=== PATIENT | male | born 1955 | race Caucasian/White ===

== ENCOUNTER 2019-05-02 13:44 | Emergency (ER) | payer OTHER, SELFPAY ==
[2019-05-02] VITALS (22 sets, daily range): BP systolic 92–135; BP diastolic 63–119; PULSE 82–146; RESP 9–19; TEMP 37.1; O2SAT 97–100
--- NOTE | 2019-05-02 13:49 | ECG_ITS ---
Measurements Intervals [place] Rate: 143 P: VT: 0 QRS: 27 QRSD: 86 T: 27 QT: 292 QTc: 451 Interpretive Statements ATRIAL FLUTTER/TACHYCARDIA WITH RAPID VENTRICULAR RESPONSE DELAYED PRECORDIAL R/S TRANSITION ABNORMAL ECG Electronically Signed On 05-03-2019 8:13:40 [employer] by Linwood Valentin D.O.
--- NOTE | 2019-05-02 14:11 | ED.ARRPALP ---
HPI - Arrhythmia/Palpitations General Chief Complaint: Arrhythmia/Palpitations Stated Complaint: Afib, low BP, tired Time Seen by Provider: 05/02/19 14:07 Source: patient and RN notes reviewed Mode of arrival: ambulatory Limitations: no limitations History of Present Illness HPI narrative: Pt is a 63 y/o male who presents to the ED with c/o arrhythmia which began at 0215 this morning. Pt states he has a PMHx of atrial fibrillation, and during episodes, he is able to feel every heartbeat. Pt denies having atrial fibrillation constantly. He reports his heart rate went from 70 bpm to 120 bpm in 2 seconds this morning. He states he is able to revert himself, but seemed unable to do so this episode which prompted him to come to the ED. He reports diaphoresis, but denies lightheadedness, chest pain, or SOB. Pt reports taking Metoprolol 75 mg twice a day for his atrial fibrillation. 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 Pt reports having cardioversions and ablations done in the past due to his cardiac complications. complaint: atrial fibrillation (felt every heartbeat) Onset (ago): hour(s) (0215 this morning) Time: 02:15 Duration: intermittent Severity: mild Context: occurred during rest (shortly after waking up) Arrhythmia history: atrial fibrillation Associated symptoms: diaphoresis Treatments prior to arrival: other (Metoprolol medication which did not alleviate symptoms) Related Data Home Medications Medication Instructions Recorded Confirmed metoprolol tartrate 05/02/19 sotalol 05/02/19 Allergies Allergy/AdvReac Type Severity Reaction Status Date / Time Penicillins Allergy Unknown Unknown Verified 05/02/19 14:15 Review of Systems Review of Systems: All systems reviewed & are unremarkable except as noted in HPI and below Constitutional: Constitutional: Denies other (lightheadedness) Cardiovascular: Cardiovascular: Denies chest pain, Reports diaphoresis and Reports other (arrhythmia (felt every heartbeat)) Respiratory: Respiratory: Denies dyspnea Neurologic: Reports other (lightheadedness) [facility] Past Medical History Medical History (Updated 05/02/19 @ 15:57 by Jonas Leary MD) Anxiety Arthritis Atrial fibrillation Bronchitis Diverticulitis Diverticulosis Gout Hypertension Rectal polyp UTI (urinary tract infection) Surgical History Surgical History (Updated 05/02/19 @ 14:13 by Roslyn Lorenz) H/O cardiac catheterization Family History Family History (Updated 11/21/16 @ 14:06 by DOCTOR UNKNOWN) Other Carcinoma of colon Family history of heart disease in male family member before age 55 Family history of malignant neoplasm Social History Social History Smoking status: Never smoker Alcohol intake: current Gender identity (if verbalized by the patient): Male Exam Narrative: Exam Narrative: Const: Healthy appearing, no acute distress, well nourished. HENMT: Lip normal, Moist mucous membranes. Eyes: Conjunctive normal, PERRL. Resp: Normal respiratory effect, clear to auscultation bilaterally. Cardio: Tachycardia but irregularly regular. No murmurs. GI: Soft, nontender, normal bowel sounds. Back/Spine/Pelvis: Full ROM Skin: Normal color, dry skin, warm Neuro: Oriented x3, alert, normal speech. Extremities: Full ROM Psych: Mental status grossly normal, normal affect. Course Vital Signs Vital signs: Vital Signs Temperature 37.1 C 05/02/19 13:57 Pulse Rate 138 H 05/02/19 13:57 Respiratory Rate 16 05/02/19 13:57 Blood Pressure 92/63 L 05/02/19 13:57 Pulse Oximetry 98 05/02/19 13:57 Temperature 37.1 C 05/02/19 13:57 Pulse Rate 84 05/02/19 15:55 Respiratory Rate 15 05/02/19 15:55 Blood Pressure 122/90 05/02/19 15:55 Pulse Oximetry 98 05/02/19 15:55 Procedures Other Procedure Procedure 1: Other Procedure: Electrical car
[2019-05-02] MEDS: SODIUM CHLORIDE 0.9% IV 1,000 ML 999 ML IV CONT (14:26)
[2019-05-02 14:35] LABS: Basophils Absolute Auto 0.1 K/mm3 (0.0-0.1); Basophils Percent Auto 0.5 % (0.2-1.2); Eosinophils Absolute Auto 0.3 K/mm3 (0-0.3); Hematocrit 51.3 % (42.0-52.0); Hemoglobin 17.4 g/dL (14.0-18.0); Immature Granulocyte Absolute 0.12 K/mm3 (0.00-0.031); Lymphocytes Absolute Auto 2.86 K/mm3 (0.9-3.2); Lymphocytes Percent Auto 22.8 % (18.3-44.2); Mean Corpuscular HGB Conc 33.9 g/dl (32-36); Mean Corpuscular Hemoglobin 31.8 pg (26-34); Mean Corpuscular Volume 93.8 fl (80-100); Mean Platelet Volume 9.9 fl (7.4-10.4); Monocytes Absolute Auto 1.1 K/mm3 (0.1-0.6); Monocytes Percent Auto 8.4 % (2.6-8.5); Neutrophils Absolute Auto 8.2 K/mm3 (1.3-6.7); Neutrophils Percent Auto 65.3 % (45.5-73.1); Platelet Count Result 289 k/mm3 (150-375); Red Blood Count 5.47 M/mm3 (4.6-6.20); Red Cell Distribution Width 12.5 % (11.5-14.5); White Blood Count 12.5 K/mm3 (4.5-10.0)
[2019-05-02 14:50] LABS: Blood Urea Nitrogen 14 mg/dL (9-20); Calcium 9.5 mg/dL (8.4-10.2); Carbon Dioxide 18 mmol/L (22-30); Chloride 102 mmol/L (98-107); Estimated CRCL calculation 93 ml/min; Estimated Glomerular Filt Rate > 60; Glucose 118 mg/dL (75-110); Potassium 4.4 mmol/L (3.4-5.0); Sodium 137 mmol/L (137-145)
[2019-05-02 15:00] LABS: Troponin I < 0.012 ng/mL (0.000-0.034)
[2019-05-02 15:05] LABS: INR 1.1; Partial Thromboplastin Time 27.9 SECONDS (22.3-36.8); Prothrombin Time 13.5 Seconds (11.1-14.7)
--- NOTE | 2019-05-02 15:48 | PC.NURSE ---
Consent obtained for cardioversion by EDP for AFib. EDP at bedside 100mcg Fentanyl given IVP @1540 200J sync cardioversion by EDP @1541 Post cardioversion, pt's HR 89, BP 122/90 Pt awake for procedure, states I feel better now .
--- NOTE | 2019-05-02 17:06 | PC.NURSE ---
Pt ambulated with this RN, pt denies any dizziness, palpations or SOB.
== END 2019-05-02 17:21 | disposition home or self-care (01) ==
PROVIDERS: Emergency Medicine; Emergency Provider Emergency Medicine; PCP Internal Medicine
DX: I48.91 Unspecified atrial fibrillation (principal); M10.9 Gout, unspecified; I10 Essential (primary) hypertension; Z87.19 Personal history of other diseases of the digestive system; Z87.440 Personal history of urinary (tract) infections
CPT/HCPCS: 36415; 80048; 84484; 85025; 85610; 85730; 92960; 93005; 96361; 96374; 96375; 99284; J3010; J7030

== ENCOUNTER 2019-09-01 12:09 | Emergency (ER) | payer OTHER, SELFPAY ==
[2019-09-01] VITALS (27 sets, daily range): BP systolic 115–150; BP diastolic 76–116; PULSE 88–149; RESP 7–22; TEMP 35.5; O2SAT 95–100
--- NOTE | 2019-09-01 12:32 | ED.ARRPALP ---
HPI - Arrhythmia/Palpitations General Chief Complaint: Arrhythmia/Palpitations Stated Complaint: I'm in a-fib Time Seen by Provider: 09/01/19 12:22 History of Present Illness HPI narrative: 63 yo male w/ h/o paroxysmal atrial fibrillation presents to the ED by private vehicle c/o at-fib. Around 1030 this morning he felt his heart rate become rapid. He has no chest pain. He does report feeling fatigued. He had a similar episode a few months ago when I saw him and emergently cardioverted him in the ED. He is on sotalol and metoprolol. Related Data Home Medications Medication Instructions Recorded Confirmed metoprolol tartrate 05/02/19 sotalol 05/02/19 Allergies Allergy/AdvReac Type Severity Reaction Status Date / Time Penicillins Allergy Unknown Unknown Verified 05/02/19 16:38 Review of Systems Review of Systems: All systems reviewed & are unremarkable except as noted in HPI and below Constitutional: Constitutional: Reports fatigue and Denies fever(s) ENT: Denies sore throat Cardiovascular: Cardiovascular: Denies chest pain and Reports rapid heart rate Respiratory: Respiratory: Denies dyspnea Gastrointestinal: Gastrointestinal: Denies abdominal pain Neurologic: Denies weakness PMFSH Past Medical History Medical History Anxiety Arthritis Atrial fibrillation Bronchitis Diverticulitis Diverticulosis Gout Hypertension Rectal polyp UTI (urinary tract infection) Surgical History Surgical History H/O cardiac catheterization Family History Family History Other Carcinoma of colon Family history of heart disease in male family member before age 55 Family history of malignant neoplasm Social History Social History Smoking status: Never smoker Alcohol intake: current Gender identity (if verbalized by the patient): Male Exam Const: General: healthy appearing, no acute distress and alert Orientation/consciousness: patient oriented x3 HENMT: Head: normal to inspection Neck: Neck: normal visual inspection and no lymphadenopathy Chest: Chest palpation & inspection: no tenderness Resp: Effort & Inspection: normal respiratory effort Auscultation: clear to auscultation bilaterally, no rales, no rhonchi and no wheezes Cardio: Jugular venous distension: no JVD Rate: tachycardic Rhythm: regular rhythm Heart sounds: no murmurs GI: Inspection: non-distended GI Palp: Yes Soft to palpation and No Tenderness to palpation present (GI) Skin: General skin exam: normal color Neuro: General: patient oriented x3, moves all extremities, no focal motor deficits and CN's II-XI intact bilaterally Speech: normal speech Extrem: General: no edema Psych: Appearance: well kempt Affect: normal affect Course Vital Signs Vital signs: Vital Signs Temperature 35.5 C L 09/01/19 12:19 Pulse Rate 148 H 09/01/19 12:19 Respiratory Rate 20 09/01/19 12:19 Blood Pressure 150/116 H 09/01/19 12:19 Pulse Oximetry 100 09/01/19 12:19 Temperature 35.5 C L 09/01/19 12:19 Pulse Rate 89 09/01/19 15:16 Respiratory Rate 11 L 09/01/19 15:16 Blood Pressure 124/76 09/01/19 15:16 Pulse Oximetry 96 09/01/19 15:16 Procedures Procedural Sedation Procedural Sedation #1: Procedure: Eletrical cardioversion Provider Performed: sedation and procedure Informed Consent Obtained: yes Equipment in Room: bag and mask, quality assurance monitor body, crash cart, oxygen, pulse oximeter and suction Plan for Sedation: moderate sedation ASA Class: II Mallampati Classification: class I Explanation to Patient/Family: Risk/Benefits/Alternatives and Pt/Family agreed with plan Pt. Educated on Procedural Sedation: Yes Re-evaluated imm
[2019-09-01 12:44] LABS: Basophils Absolute Auto 0.1 K/mm3 (0.0-0.1); Basophils Percent Auto 0.8 % (0.2-1.2); Eosinophils Absolute Auto 0.4 K/mm3 (0-0.3); Eosinophils Percent Auto 3.5 % (0-4.4); Hematocrit 55.6 % (42.0-52.0); Hemoglobin 19.2 g/dL (14.0-18.0); Immature Granulocyte Absolute 0.14 K/mm3 (0.00-0.031); Immature Granulocyte Percent A 1.3 % (0-0.5); Lymphocytes Absolute Auto 3.31 K/mm3 (0.9-3.2); Mean Corpuscular HGB Conc 34.5 g/dl (32-36); Mean Corpuscular Hemoglobin 32.6 pg (26-34); Mean Corpuscular Volume 94.4 fl (80-100); Mean Platelet Volume 9.5 fl (7.4-10.4); Monocytes Absolute Auto 0.9 K/mm3 (0.1-0.6); Monocytes Percent Auto 8.7 % (2.6-8.5); Neutrophils Absolute Auto 5.8 K/mm3 (1.3-6.7); Neutrophils Percent Auto 54.7 % (45.5-73.1); Platelet Count Result 284 k/mm3 (150-375); Red Blood Count 5.89 M/mm3 (4.6-6.20); Red Cell Distribution Width 12.4 % (11.5-14.5); White Blood Count 10.7 K/mm3 (4.5-10.0)
[2019-09-01 12:55] LABS: Blood Urea Nitrogen 15 mg/dL (9-20); Calcium 9.8 mg/dL (8.4-10.2); Carbon Dioxide 24 mmol/L (22-30); Chloride 99 mmol/L (98-107); Estimated CRCL calculation 108 ml/min; Estimated Glomerular Filt Rate > 60; Glucose 144 mg/dL (75-110); Potassium 4.6 mmol/L (3.4-5.0); Prothrombin Time 12.5 Seconds (11.1-14.7); Sodium 135 mmol/L (137-145)
[2019-09-01 12:56] LABS: Partial Thromboplastin Time 28.1 SECONDS (22.3-36.8)
--- NOTE | 2019-09-01 13:11 | ECG_ITS ---
Measurements Intervals [place] Rate: 151 P: [place]: 0 QRS: 8 QRSD: 94 T: 49 QT: 278 QTc: 441 Interpretive Statements SUPRAVENTRICULAR TACHYCARDIA, CONSIDER ATRIAL FLUTTER CANNOT RULE OUT SEPTAL INFARCT, AGE INDETERMINATE BORDERLINE ST-T WAVE ABNORMALITY- INF/LAT LEADS ABNORMAL ECG Electronically Signed On 09-01-2019 15:42:52 CDT by Linwood Valentin D.O.
[2019-09-01 14:15] LABS: Troponin I < 0.012 ng/mL (0.000-0.034)
[2019-09-01] MEDS: METOPROLOL TARTRATE INJ 5 MG/5 ML VIAL 2.5 MG IV PUSH (14:33)
== END 2019-09-01 15:36 | disposition home or self-care (01) ==
PROVIDERS: Emergency Provider Emergency Medicine; PCP Internal Medicine
DX: I48.92 Unspecified atrial flutter (principal); I48.0 Paroxysmal atrial fibrillation; I47.1 Supraventricular tachycardia; R94.31 Abnormal electrocardiogram [ECG] [EKG]; I10 Essential (primary) hypertension; M10.9 Gout, unspecified; Z87.440 Personal history of urinary (tract) infections
CPT/HCPCS: 36415; 80048; 84484; 85025; 85610; 85730; 92960; 93005; 96374; 99285

== ENCOUNTER 2020-06-25 21:00 | Observation (INO) | payer OTHER, SELFPAY ==
--- NOTE | ~2020-06-25 | XR_ITS ---
XR chest 1V portable 06/25/2020 23:30 Indication: Atrial fibrillation. Procedure: AP portable chest Comparison: Comparison to multiple prior studies sequentially, with oldest reviewed study dated 03/2011. Findings: Cardiomegaly. Diffuse bilateral airspace disease. No significant effusion or pneumothorax. No acute osseous abnormality. Impression: 1: Diffuse bilateral airspace disease which may represent edema or pneumonia. 2: Cardiomegaly. Reviewed, dictated and finalized at location A. Impression: 1: Diffuse bilateral airspace disease which may represent edema or pneumonia. 2: Cardiomegaly.
[2020-06-25 21:09] VITALS: BP 109/90; PULSE 147; RESP 18; TEMP 36.5; O2SAT 94
--- NOTE | 2020-06-25 21:14 | ECG_ITS ---
Measurements Intervals [place] Rate: 144 P: [place]: 0 QRS: 9 QRSD: 98 T: 65 QT: 307 QTc: 477 Interpretive Statements ATRIAL FIBRILLATION WITH RAPID VENTRICULAR RESPONSE BORDERLINE ST-T WAVE ABNORMALITY- HIGH LATERAL LEADS ABNORMAL ECG Electronically Signed On 06-26-2020 7:13:20 CDT by Linwood Valentin D.O.
--- NOTE | 2020-06-25 21:16 | ED.GENADULT ---
HPI - General Adult General Chief complaint: Arrhythmia/Palpitations Stated complaint: arrythmias Time Seen by Provider: 06/25/20 21:10 History of Present Illness HPI narrative: Patient is a 64 y/o male complaining of heart palpitation starting 2 hours ago. He states that his heart is beating moderately fast. There is no alleviating or exacerbating factor. He has no chest pain. He has slight SOB. Related Data Home Medications Medication Instructions Recorded Confirmed metoprolol tartrate 75 mg PO Q12H 05/02/19 06/26/20 sotalol 80 mg PO DAILY 05/02/19 06/26/20 L. gasseri-B. bifidum-B longum 1 cap PO DAILY 06/26/20 06/26/20 [[employer] aspirin 325 mg PO DAILY 06/26/20 06/26/20 diphenhydramine HCl [Benadryl] 50 mg PO HS 06/26/20 06/26/20 ffrrahuusdhs-ulc-uhvu-FA-vit K 1 tablet PO DAILY 06/26/20 06/26/20 [Adults Multivitamin] omega-3 fatty acids-vitamin E 1,000 cap PO DAILY 06/26/20 06/26/20 [Fish Oil] sotalol 100 mg PO HS 06/26/20 06/26/20 Allergies Allergy/AdvReac Type Severity Reaction Status Date / Time Penicillins Allergy Unknown Unknown Verified 05/02/19 16:38 Review of Systems Constitutional: Constitutional: Denies chills, Denies fever(s), Denies headache(s) and Denies weakness Eyes: Eyes: Denies blurry vision ENT: Denies headache(s) and Denies neck pain Cardiovascular: Cardiovascular: Denies chest pain, Reports rapid heart rate and Reports dyspnea Respiratory: Respiratory: Denies cough and Denies dyspnea Gastrointestinal: Gastrointestinal: Denies abdominal pain, Denies diarrhea, Denies nausea and Denies vomiting Genitourinary: Genitourinary: Denies hematuria and Denies dysuria Musculoskeletal: Musculoskeletal: Denies back pain and Denies neck pain Neurologic: Denies headache(s) and Denies weakness [facility] Past Medical History Medical History Anxiety Arthritis Atrial fibrillation Bronchitis Diastolic dysfunction Echocardiogram March 2016: Grade 2 diastolic dysfunction EF 75-80%, mild to moderate mitral valve regurgitation with possible underestimation of degree of regurgitation given jet Diverticulitis Diverticulosis Gout History of cardioversion Hypertension Hypertrophic cardiomyopathy Rectal polyp UTI (urinary tract infection) Surgical History Surgical History H/O cardiac catheterization History of cardiac radiofrequency ablation History of colonoscopy with polypectomy (~2016) History of radiofrequency ablation (RFA) procedure for cardiac arrhythmia S/P medial meniscectomy of left knee (~11/2016) Status post laparoscopic-assisted sigmoidectomy (~2013) Family History Family History Other Carcinoma of colon Family history of heart disease in male family member before age 55 Family history of malignant neoplasm Social History Social History (Updated 06/26/20 @ 09:19 by Keara Bolden DO) Social History: The patient is . He drinks at least 3-4 beers a day. He is a lifelong nonsmoker and denies drug use. Smoking status: Never smoker Alcohol intake: current Drinks per week: 20 Substance use: never Gender identity (if verbalized by the patient): Male Spiritual care concerns: No Exam Const: General: no acute distress and well developed Orientation/consciousness: oriented to person, oriented to place, oriented to time and patient oriented x3 HENMT: Head: normocephalic Ears: external ears normal General nose exam: Normal external nose present Eyes: General: appearance normal, both eyes and all related structures Conjunctivae: conjunctivae normal Neck: Neck: normal visual inspection and full ROM Chest: Chest palpation & inspection: normal inspection of the chest and no tenderness Resp: Effort & Inspection: normal respiratory effort Auscultation: clear to auscultation
[2020-06-25 21:24] LABS: Basophils Absolute Auto 0.1 K/mm3 (0.0-0.1); Basophils Percent Auto 0.6 % (0.2-1.2); Eosinophils Absolute Auto 0.1 K/mm3 (0-0.3); Eosinophils Percent Auto 1.1 % (0-4.4); Hematocrit 39.7 % (42.0-52.0); Hemoglobin 13.4 g/dL (14.0-18.0); Immature Granulocyte Absolute 0.48 K/mm3 (0.00-0.031); Immature Granulocyte Percent A 4.5 % (0-0.5); Lymphocytes Absolute Auto 1.39 K/mm3 (0.9-3.2); Lymphocytes Percent Auto 13.1 % (18.3-44.2); Mean Corpuscular HGB Conc 33.8 g/dl (32-36); Mean Corpuscular Hemoglobin 30.9 pg (26-34); Mean Corpuscular Volume 91.7 fl (80-100); Mean Platelet Volume 8.9 fl (7.4-10.4); Monocytes Absolute Auto 0.8 K/mm3 (0.1-0.6); Neutrophils Absolute Auto 7.9 K/mm3 (1.3-6.7); Neutrophils Percent Auto 73.7 % (45.5-73.1); Platelet Count Result 501 k/mm3 (150-375); Red Blood Count 4.33 M/mm3 (4.6-6.20); Red Cell Distribution Width 12.4 % (11.5-14.5); White Blood Count 10.7 K/mm3 (4.5-10.0)
[2020-06-25 21:33] LABS: Anion Gap 4 mmol/L (8-16); Blood Urea Nitrogen 9 mg/dL (9-20); Carbon Dioxide 26 mmol/L (22-30); Chloride 102 mmol/L (98-107); Estimated CRCL calculation 119 ml/min; Estimated Glomerular Filt Rate > 60; Glucose 133 mg/dL (75-110); Potassium 3.5 mmol/L (3.4-5.0); Sodium 132 mmol/L (137-145)
[2020-06-25 21:34] LABS: INR 1.1; Prothrombin Time 14.5 Seconds (11.1-14.7)
[2020-06-25 21:35] LABS: Partial Thromboplastin Time 29.8 SECONDS (22.3-36.8)
[2020-06-25] MEDS: dilTIAZem HCl INJ 25 MG/5 ML VIAL 10 MG IV PUSH (21:43)
[2020-06-25 21:44] VITALS: BP 119/97; PULSE 141
[2020-06-25 21:45] LABS: Troponin I < 0.012 ng/mL (0.000-0.034)
[2020-06-25 23:50] VITALS: BP 109/74; PULSE 121; RESP 18; O2SAT 96
[2020-06-26] VITALS (28 sets, daily range): BP systolic 90–134; BP diastolic 50–91; PULSE 74–117; RESP 16–28; TEMP 36.1–36.7; O2SAT 90–99; BMI 31.9
--- NOTE | 2020-06-26 01:57 | ADMGEN ---
This patient, Kieran Martinez, was admitted to IMU Room 200-01. Patient/family oriented to hospital policies and general routines including ID bracelet, bed and alarms, visiting hours, pain management, procedures, bathroom and other care routines, personal items, smoking policy, room service/diet, and visiting hours. Information on how to activate the Rapid Response Team has been discussed. Patient/Family are encouraged to report perceived risks to care and to ask questions if they do not understand what they are told or what they should do. Pal TIERNEY Approx [id number]
[2020-06-26 03:54] LABS: Hematocrit 34.9 % (42.0-52.0); Hemoglobin 11.9 g/dL (14.0-18.0); Mean Corpuscular HGB Conc 34.1 g/dl (32-36); Mean Corpuscular Hemoglobin 31.6 pg (26-34); Mean Corpuscular Volume 92.8 fl (80-100); Mean Platelet Volume 9.2 fl (7.4-10.4); Platelet Count Result 447 k/mm3 (150-375); Red Blood Count 3.76 M/mm3 (4.6-6.20); Red Cell Distribution Width 12.4 % (11.5-14.5)
[2020-06-26 04:03] LABS: Anion Gap 5 mmol/L (8-16); Blood Urea Nitrogen 11 mg/dL (9-20); Calcium 7.9 mg/dL (8.4-10.2); Carbon Dioxide 27 mmol/L (22-30); Chloride 100 mmol/L (98-107); Estimated CRCL calculation 119 ml/min; Estimated Glomerular Filt Rate > 60; Glucose 112 mg/dL (75-110); Potassium 3.5 mmol/L (3.4-5.0); Sodium 132 mmol/L (137-145)
[2020-06-26 04:14] LABS: NT Pro B Type Natriuretic Pept 2350 PG/ML (5-100); Troponin I 0.027 ng/mL (0.000-0.034)
--- NOTE | 2020-06-26 06:12 | PM.IMHP ---
H&P: HPI History of Present Illness Date/Time: 06/26/20 06:12 Chief Complaint: In AFib again Narrative: 64-year-old male with past medical history of paroxysmal atrial fibrillation who presented to the ER with recurrent AFib. The patient reports that he had been off work for 2 weeks due to COVID-19. He had just returned to work on the and finished a complete day work. He went home and drank 3 beers and ate dinner. During dinner he felt 2 brief episodes of flutter. After dinner when he went to relax he went into atrial fibrillation. He got up and took an extra with 40 mg of sotalol for a total dose of 140 mg and he walked around the room. He reports that sometimes if he gets up in exerts himself mildly his heart will go back into a more normal rhythm. His symptoms did not resolve so he came to the ER. In the ER he received a Cardizem bolus and was placed on a Cardizem drip. His heart rate improved down into the 70s but he remains in AFib. The patient has had 2 cardiac ablation so with recurrence of AFib. His last ablation was in 2013. His last electrical cardioversion for in March 2019 and in August of 2019. He denies any chest pain or shortness of breath with his symptoms. He reports that he thinks he went into AFib because he has not been sleeping as well due to a lingering cough following his recent COVID diagnosis. Review of Systems Review of Systems: Narrative: 12 systems were reviewed with pertinent positives and negatives per HPI. Except as documented in the HPI, all other systems were reviewed and are negative. [facility] Past Medical History Medical History Anxiety Arthritis Atrial fibrillation Bronchitis Diastolic dysfunction Echocardiogram March 2016: Grade 2 diastolic dysfunction EF 75-80%, mild to moderate mitral valve regurgitation with possible underestimation of degree of regurgitation given jet Diverticulitis Diverticulosis Gout History of cardioversion Hypertension Hypertrophic cardiomyopathy Rectal polyp UTI (urinary tract infection) Surgical History Surgical History H/O cardiac catheterization History of cardiac radiofrequency ablation History of colonoscopy with polypectomy (~2016) History of radiofrequency ablation (RFA) procedure for cardiac arrhythmia S/P medial meniscectomy of left knee (~11/2016) Status post laparoscopic-assisted sigmoidectomy (~2013) Family History Family History Other Carcinoma of colon Family history of heart disease in male family member before age 55 Family history of malignant neoplasm Social History Social History (Updated 06/26/20 @ 09:19 by Keara Bolden DO) Social History: The patient is . He drinks at least 3-4 beers a day. He is a lifelong nonsmoker and denies drug use. Smoking status: Never smoker Alcohol intake: current Drinks per week: 20 Substance use: never Gender identity (if verbalized by the patient): Male Spiritual care concerns: No Meds Home Medications and Allergies Home Medications Medication Instructions Recorded Confirmed Type metoprolol tartrate 75 mg PO Q12H 05/02/19 06/26/20 History sotalol 80 mg PO DAILY 05/02/19 06/26/20 History L. gasseri-B. bifidum-B longum 1 cap PO DAILY 06/26/20 06/26/20 History [[facility]] aspirin 325 mg PO DAILY 06/26/20 06/26/20 History diphenhydramine HCl [Benadryl] 50 mg PO HS 06/26/20 06/26/20 History wxujkrgliqgy-jqb-tett-FA-vit K 1 tablet PO DAILY 06/26/20 06/26/20 History [Adults Multivitamin] omega-3 fatty acids-vitamin E 1,000 cap PO DAILY 06/26/20 06/26/20 History [Fish Oil] sotalol 100 mg PO HS 06/26/20 06/26/20 History Allergies Allergy/AdvReac Type Severity Reaction Status Date / Time Penicillins Allergy Unknown Unknown Verified 05/02/19 16:38 Vital Signs Vital Si
--- NOTE | 2020-06-26 08:13 | PM.CNCAR ---
Assessment and Plan Assessment and plan (1) Atrial fibrillation with RVR: Code(s): I48.91 - Unspecified atrial fibrillation Status: Acute Assessment and Plan: 64-year-old male with past medical history of atrial fibrillation and atrial flutter with history of radiofrequency ablation treatment, s/p multiple cardioversions; last DC cardioversion on May 08, 2016 for atrial flutter; asymmetric septal hypertrophy; recent COVID-19 infection. Patient presents with recurrence of atrial fibrillation with RVR. He has been initiated on diltiazem, but remains in atrial fibrillation. Patient is eager to proceed with FARAZ guided DC cardioversion. -I spoke at length with the patient about his clinical condition. Patient drinks 3-4 beers per day. He was strongly advised to cut down or preferably a stop alcohol use, as it may be contributing to his recurrent AFib. -patient has been historically noncompliant with anticoagulation due to symptoms of dyspepsia. He also has concerns about the cost related to novel anticoagulants. Option of warfarin was discussed with the patient. Patient would be a candidate for chronic anticoagulation for CVA prophylaxis. At this time, he has willing to be anticoagulated prior to and at least 4 weeks post cardioversion. He will be discharged home post cardioversion on apixaban 5 mg p.o. b.i.d. Will also add PPI due to history of dyspepsia with anticoagulants. -patient will continue on sotalol for rhythm control strategy post cardioversion. 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 He was advised to follow up with electrophysiology as well, however, patient seemed to be reluctant for that. History of Present Illness History of Present Illness Consult date/time: 06/26/20 08:13 Date of consult 06/26/2020 Reason for consult: AFib Requesting physician:MD Ghulam Chief complaint: Palpitations HPI: 64-year-old male with past medical history of atrial fibrillation and atrial flutter with history of radiofrequency ablation treatment, s/p multiple cardioversions; last DC cardioversion on May 08, 2016 for atrial flutter; asymmetric septal hypertrophy; recent COVID-19 infection. Patient follows with Dr. Alfonso for cardiovascular care. He presented to [facility] ER on 06/25/2020 complaints of palpitations that started last night. Patient has history of atrial fibrillation and flutter with radiofrequency ablation x2 in 2012 and 2013 by . He had recurrence of atrial flutter with subsequent cardioversions. Patient states that he usually knows when he goes back into the atrial fibrillation/flutter. He states he has not had any palpitations for approximately 9 months, until last night. At baseline, he does not have any dyspnea on exertion, chest pain, dizziness or syncope. He has started not been compliant with chronic anticoagulation. Patient states that he was unable to tolerate dabigatran and rivaroxaban due to dyspepsia. He is taking aspirin currently. Patient has been on rhythm control with sotalol. He is also on metoprolol tartrate. Patient recently had COVID-19 infection 2-3 weeks ago. He did not require any hospitalization. Patient states that he had symptoms of fever which last for few days. Initial EKG on my personal evaluation showed SVT versus atrial flutter with a ventricular rate of 151 beats per minute. Subsequent EKG showed atrial fibrillation with RVR, ventricular rate 144 beats per minute. Patient was initiated on diltiazem drip with improvement in the heart rates, but still remains in atrial fibrillation. Patient is eager to proceed with DC cardioversion. On Two sets of troponins negative. NT proBNP elevated at 2350. Chest x-ray showed cardiomegaly and diffuse bilateral airspace disease which may represent edema or pneumonia. Patient denies smoking. He drinks about 3-4 beers per day. Denies illicit drugs. Reason For Visit: a fib with rv
[2020-06-26] MEDS: SOTALOL HCL 80 MG TABLET PO (08:25)
[2020-06-26 09:18] LABS: Magnesium 1.9 mg/dL (1.6-2.3)
[2020-06-26] MEDS: ENOXAPARIN 120 MG/0.8 ML SYRINGE 106 MG SUB-Q (09:27)
--- NOTE | 2020-06-26 10:05 | WPDMODSED ---
Moderate Sedation Note-Pt Data Patient Data Allergies Allergy/AdvReac Type Severity Reaction Status Date / Time Penicillins Allergy Unknown Unknown Verified 05/02/19 16:38 Home Medications Medication Instructions Recorded Confirmed Type metoprolol tartrate 75 mg PO Q12H 05/02/19 06/26/20 History sotalol 80 mg PO DAILY 05/02/19 06/26/20 History L. gasseri-B. bifidum-B longum 1 cap PO DAILY 06/26/20 06/26/20 History [[facility]] aspirin 325 mg PO DAILY 06/26/20 06/26/20 History diphenhydramine HCl [Benadryl] 50 mg PO HS 06/26/20 06/26/20 History myzzspjnyhfg-nql-apga-FA-vit K 1 tablet PO DAILY 06/26/20 06/26/20 History [Adults Multivitamin] omega-3 fatty acids-vitamin E 1,000 cap PO DAILY 06/26/20 06/26/20 History [Fish Oil] sotalol 100 mg PO HS 06/26/20 06/26/20 History Current Medications: Active Medications Apixaban (Apixaban 5 Mg Tablet) 5 mg PO Q12HR SCOTT Diphenhydramine HCl (Diphenhydramine Hcl Cap 25 Mg Capsule) 50 mg PO HS SCOTT Diltiazem HCl (Cardizem 100 Mg/D5w 100 Ml) 100 mg in 100 mls @ 5 mls/hr IV CONT .Q20H [facility] Last Admin: 06/26/20 08:27 Dose: 5 mg/hr, 5 mls/hr Documented by: Metoprolol Tartrate (Metoprolol Tartrate 25 Mg Tablet) 75 mg PO Q12HR SCOTT Pantoprazole Sodium (Pantoprazole 40 Mg Tablet) 40 mg PO QAM [facility] Sotalol HCl (Sotalol Hcl 80 Mg Tablet) 80 mg PO DAILY [facility] Last Admin: 06/26/20 08:25 Dose: 80 mg Documented by: Sotalol HCl (Sotalol Hcl 20 Mg Tablet) 20 mg PO HS SCOTT Sotalol HCl (Sotalol Hcl 80 Mg Tablet) 80 mg PO HS [facility] Sedation/Anesthesia: No previous sedation/anesthesia problems (including family history). [facility] Past Medical History Medical History Anxiety Arthritis Atrial fibrillation Bronchitis Diastolic dysfunction Echocardiogram March 2016: Grade 2 diastolic dysfunction EF 75-80%, mild to moderate mitral valve regurgitation with possible underestimation of degree of regurgitation given jet Diverticulitis Diverticulosis Gout History of cardioversion Hypertension Hypertrophic cardiomyopathy Rectal polyp UTI (urinary tract infection) Surgical History Surgical History H/O cardiac catheterization History of cardiac radiofrequency ablation History of colonoscopy with polypectomy (~2016) History of radiofrequency ablation (RFA) procedure for cardiac arrhythmia S/P medial meniscectomy of left knee (~11/2016) Status post laparoscopic-assisted sigmoidectomy (~2013) Family History Family History Other Carcinoma of colon Family history of heart disease in male family member before age 55 Family history of malignant neoplasm Social History Social History (Updated 06/26/20 @ 09:19 by Keara Bolden DO) Social History: The patient is . He drinks at least 3-4 beers a day. He is a lifelong nonsmoker and denies drug use. Smoking status: Never smoker Alcohol intake: current Drinks per week: 20 Substance use: never Gender identity (if verbalized by the patient): Male Spiritual care concerns: No Mod Sed Physical Exam Physical Exam Pre Procedural Exam: Normal: Airway Hours since solid foods: 10 Hours since liquid intake: 10 Internal Medicine - PN: Obj Da Vital Signs Vital Signs: Vital Signs - 24 hr 06/25/20 21:09 06/25/20 21:44 06/25/20 23:50 Temperature 36.5 C Pulse Rate 147 H 141 H 121 H Respiratory Rate 18 18 Blood Pressure 109/90 119/97 H 109/74 Pulse Oximetry 94 96 06/26/20 01:45 06/26/20 01:52 06/26/20 02:00 Temperature 36.1 C L 36.3 C L Pulse Rate 109 H 117 H 95 Respiratory Rate 20 16 Blood Pressure 90/70 L 134/89 Pulse Oximetry 95 99 06/26/20 04:00 06/26/20 06:00 06/26/20 07:37 Temperature 36.4 C 36.3 C L Pulse Rate 82 88 85 Respiratory Rate 22 H 18 Blood Pressure 121/69 97/70 L Pulse Oximetry 94 93
--- NOTE | 2020-06-26 11:09 | WPDTECDV ---
FARAZ with Cardioversion Date of procedure: 06/26/20 Description of Procedure: PROCEDURES PERFORMED: 1. Multiplane transesophageal echocardiography with color flow and Doppler assessment 2. Successful synchronized DC cardioversion x1 with jehovah's witness of sinus rhythm 3. Moderate sedation- CPT code 65452 SEDATION: Propofol 130 milligram IV in divided doses; midazolam 2 mg IV in divided doses; start time 1037 , stop time 1051 , total [id number] time 14 minutes; Sayra Maldonado RN was trained observer for moderate sedation. PROCEDURE: After obtaining informed consent, transcutaneous pads were placed in the right parasternal and left paravertebral positions. Patient was given lidocaine gel, followed by 2 sprays of benzocaine spray. Bite block was placed. Patient was positioned in the left lateral position. After adequate sedation with propofol, transesophageal scope was advanced and multiplanar transesophageal echocardiography was performed with and without color flow and Doppler assessment. Patient's vitals were monitored throughout the procedure. DC CARDIOVERSION REPORT: After ruling out left atrial appendage thrombus, synchronized DC cardioversion was performed using 200 joules x1 with jehovah's witness of sinus rhythm. Heart rate was in 70s after cardioversion. Patient tolerated procedure well. There were no immediate procedure related complications. FINDINGS: LEFT VENTRICLE: Normal size, asymmetrical septal hypertrophy, ejection fraction about 55% with variable contractility. RIGHT VENTRICLE: Normal size and systolic function LEFT ATRIUM: severe left atrial appendage . Severe left atrial enlargement. No evidence of left atrial appendage thrombus. RIGHT ATRIUM: Normal RA size. ATRIAL SEPTUM: Interatrial septum is deviated to worse right suggestive of elevated left atrial pressures. No shunt on color Doppler. MITRAL VALVE: Normal structure, severe mitral regurgitation AORTIC VALVE: normal structure, no stenosis or regurgitation. TRICUSPID VALVE: Normal structure, mild TR, unable to assess RVSP. PULMONIC VALVE: Not well visualized PERICARDIUM: Normal, no significant pericardial effusion AORTA: Normal root size RHYTHM: atrial fibrillation, followed by sinus rhythm after DC cardioversion CONCLUSIONS: 1. Normal LV size, asymmetric septal hypertrophy, ejection fraction about 55% with variable LV contractility due to atrial fibrillation. 2. Severe left atrial enlargement, no evidence of left atrial appendage thrombus; atrial septum deviated towards the right consistent with elevated left atrial pressures. 3. Severe mitral regurgitation. 4. No other significant valvular abnormality. 5. Synchronized DC cardioversion with jehovah's witness of sinus rhythm. PLAN/RECOMMENDATIONS: Patient will continue home medications including sotalol. He was given a dose of low-molecular weight heparin prior to DC cardioversion. Patient will be initiated on oral anticoagulation with apixaban 5 mg p.o. b.i.d.. Patient gives history of dyspepsia to other anticoagulants, and will therefore be initiated on PPI. Patient was strongly advised to be compliant with anticoagulation, at least for next 4 weeks post cardioversion. He understood the elevated risk of CVA post cardioversion in the absence of adequate anticoagulation. Patient will follow-up with Dr. Alfonso in the cardiology clinic for longitudinal care.
--- NOTE | 2020-06-26 12:30 | PC.NURSE ---
[id number]- Caridoversion at bedside-RN from cardiac cath lab manager at bedside- appropriate equipment at bedside; Dr. Hills performed procedure- see procedure documentation for detail/ vital signs; 1130 assumed care- pt awake- slightly drowsy- no c/o pain - monitor SR 70's- pt wanting to go home today- at bedside
--- NOTE | 2020-06-26 14:57 | PM.DS ---
DS: Admitting Diagnosis Admitting Diagnosis Admitting Diagnosis: Chief Complaint: In AFib again DS: Discharge Diagnosis Discharge Diagnosis (1) Paroxysmal atrial fibrillation with RVR: Code(s): I48.0 - Paroxysmal atrial fibrillation Status: Acute Assessment and Plan: Will continue patient's home metoprolol and sotalol. The patient is on a Cardizem drip. His rate is now controlled in the 70s on Cardizem drip. The patient reports that he does not take chronic anticoagulation. He is on a full-dose aspirin daily. The patient does drink alcohol to excess in drinks at least 3-4 alcoholic beverages a day. I discussed in detail with him the importance of cutting back on alcohol use as his alcohol use may be playing a component in his recurrent atrial fibrillation. Cardiology has been consulted for further recommendations the patient may require repeat cardioversion.. (2) COVID-19: Code(s): U07.1 - COVID-19 Status: Acute Assessment and Plan: Patient recently had COVID-19 which explains his chest x-ray findings. He has been released by the health department. He has not had any further fevers. He is no longer considered infectious. DS: Summary Hospital Course Reason for hospitalization: Chief Complaint: In AFib again Narrative: 64-year-old male with past medical history of paroxysmal atrial fibrillation who presented to the ER with recurrent AFib. The patient reports that he had been off work for 2 weeks due to COVID-19. He had just returned to work on the and finished a complete day work. He went home and drank 3 beers and ate dinner. During dinner he felt 2 brief episodes of flutter. After dinner when he went to relax he went into atrial fibrillation. He got up and took an extra with 40 mg of sotalol for a total dose of 140 mg and he walked around the room. He reports that sometimes if he gets up in exerts himself mildly his heart will go back into a more normal rhythm. His symptoms did not resolve so he came to the ER. In the ER he received a Cardizem bolus and was placed on a Cardizem drip. His heart rate improved down into the 70s but he remains in AFib. The patient has had 2 cardiac ablation so with recurrence of AFib. His last ablation was in 2013. His last electrical cardioversion for in March 2019 and in August of 2019. He denies any chest pain or shortness of breath with his symptoms. He reports that he thinks he went into AFib because he has not been sleeping as well due to a lingering cough following his recent COVID diagnosis. Hospital Course: Patient is 64-year-old male with history of recurrent atrial fibrillation status post radiofrequency ablation and multiple cardioversions last DC cardioversion in 2017 patient was seen by Cardiology recommending FARAZ guided DC cardioversion, patient was taken to the cardiac laborer car barn and had a cardioversion successfully converted to sinus rhythm with a rate control patient will continue Eliquis 5mg b.i.d., and PPI, sotalol patient clinically stable will discharge patient will follow-up this high energy forming equipment operator as scheduled. Status at Discharge Functional status at discharge: independent ambulation Overall status at discharge: patient is back to baseline Time Spent with Patient Time attestation: Total time spent providing and/or coordinating discharge services: Patient was seen and examined at the time of the discharge Condition at discharge is stable Code status: Full code. Time spent preparing discharge summary, discharge medications, discussing discharge planning with oil field caser and patient is 35 minutes. Time spent: Greater than 30 minutes Exam Narrative: Exam Narrative: Patient is comfortable, NAD HEENT: eyes are clear and none icteric LUNGS:CTA HEART: RR S1S2 ABD: BS+, Soft and nontender Lower extremities: no edema SKIN: nonjaundiced Neuro: grossly intact. DS: Data Data Completed and Pending Labs on day of discharge: Labs from
--- NOTE | 2020-06-26 16:19 | PC.NURSE ---
Orders to discharge home- instructions given to pt and - both verbalized understanding- Samples of Eliquis given to pt provided by [facility]- ; home via wheelchair accompanied by staff to vehicle driven by
== END 2020-06-26 16:20 | disposition home or self-care (01) ==
LOC: ANHED 21:21 → ANHIMU 06-26 05:35
PROVIDERS: Internal Medicine Cardiovascular Disease; Admitting Provider Internal Medicine; Emergency Provider Emergency Medicine; PCP Internal Medicine; Visit Provider Family Medicine
PROC: 5A2204Z Restoration of Cardiac Rhythm, Single (ICD-10-PCS; principal; 2020-06-26 10:30)
PROC: (CPT 93312; 2020-06-26 10:30)
DX: I48.0 Paroxysmal atrial fibrillation (principal); Z86.16 Personal history of COVID-19; I10 Essential (primary) hypertension; I34.0 Nonrheumatic mitral (valve) insufficiency; R00.2 Palpitations; R06.02 Shortness of breath
CPT/HCPCS: 36415; 71045; 80048; 83735; 83880; 84484; 85025; 85027; 85610; 85730; 92960; 93005; 93312; 93320; 93325; 96365; 96366; 96372; 99285; A9270; G0378; J1650; J2250; J2704; J7040

== ENCOUNTER → 2021-01-05 00:59 | Outpatient (CLI) | payer SELFPAY ==
[2021-01-05 18:23] LABS: SARS-CoV-2 RNA PCR Negative
== END ==
PROVIDERS: PCP Internal Medicine; Visit Provider Internal Medicine Cardiovascular Disease
DX: Z01.812 Encounter for preprocedural laboratory examination (principal); Z20.822 Contact with and (suspected) exposure to COVID-19
CPT/HCPCS: C9803; U0003; U0005

== ENCOUNTER 2021-01-08 02:38 | Day surgery (SDC) | payer BC, SELFPAY ==
[2021-01-07 15:50] VITALS: BMI 31.6
[2021-01-08] VITALS (16 sets, daily range): BP systolic 86–144; BP diastolic 56–91; PULSE 66–139; RESP 9–27; TEMP 36.6; O2SAT 94–100; BMI 32.8
--- NOTE | 2021-01-08 | ECG_ITS ---
Measurements Intervals [place] Rate: 70 P: 62 TX: 194 QRS: 6 QRSD: 82 T: 11 QT: 403 QTc: 436 Interpretive Statements SINUS RHYTHM CONSIDER INFERIOR INFARCT, AGE INDETERMINATE ABNORMAL ECG Electronically Signed On 01-08-2021 13:02:35 CDT by Linwood Valentin D.O.
--- NOTE | 2021-01-08 10:00 | ECG_ITS ---
Measurements Intervals [place] Rate: 124 P: SC: 0 QRS: -7 QRSD: 91 T: 60 QT: 316 QTc: 455 Interpretive Statements ATRIAL FIBRILLATION WITH RAPID VENTRICULAR RESPONSE BORDERLINE R WAVE PROGRESSION, ANTERIOR LEADS BORDERLINE ST-T WAVE ABNORMALITY- HIGH LATERAL LEADS BASELINE ARTIFACT- II, AVR, AVL, AVF ABNORMAL ECG Electronically Signed On 01-08-2021 10:37:49 CDT by Linwood Valentin D.O.
[2021-01-08 10:52] LABS: Hematocrit 49.2 % (42.0-52.0); Hemoglobin 17.4 g/dL (14.0-18.0); Mean Corpuscular HGB Conc 35.4 g/dl (32-36); Mean Corpuscular Hemoglobin 34.1 pg (26-34); Mean Corpuscular Volume 96.5 fl (80-100); Mean Platelet Volume 9.6 fl (7.4-10.4); Platelet Count Result 241 k/mm3 (150-375); Red Cell Distribution Width 12.8 % (11.5-14.5); White Blood Count 10.4 K/mm3 (4.5-10.0)
[2021-01-08 11:15] LABS: Anion Gap 10 mmol/L (8-16); Blood Urea Nitrogen 17 mg/dL (9-20); Calcium 9.9 mg/dL (8.4-10.2); Carbon Dioxide 26 mmol/L (22-30); Chloride 103 mmol/L (98-107); Estimated CRCL calculation 105 ml/min; Estimated Glomerular Filt Rate > 60; Glucose 118 mg/dL (65-110); Potassium 4.6 mmol/L (3.4-5.0); Sodium 139 mmol/L (137-145)
--- NOTE | 2021-01-08 11:48 | WPDHPUPDATE1 ---
History and Physical Update Update Date/Time: 01/08/21 11:48 History and Physical has been reviewed, including an updated exam of the patient. There are NO changes in the patient's condition. Risks, benefits, and alternatives have been discussed and questions answered. Patient agrees to proceed with procedure.
--- NOTE | 2021-01-08 11:51 | WPDMODSED ---
Moderate Sedation Note-Pt Data Patient Data Diagnosis: Atrial flutter with rapid ventricular response Present Complaint: Fatigue History and physical update: Patient is a pleasant 65-year-old male with a past medical history significant for hypertrophic cardiomyopathy, paroxysmal atrial fibrillation and atrial flutter status post AFib ablation x2 and multiple cardioversions who developed symptomatic atrial fibrillation and atrial flutter with rapid ventricle response referred for transesophageal echocardiogram guided elective electrical cardioversion in attempt to restore sinus rhythm. Patient started back on Eliquis 5 mg once daily over the past week but had taken Eliquis 5 mg this morning prior to arrival for scheduled cardioversion. Impression/plan of care: Transesophageal echocardiogram guided elective electrical cardioversion in attempt to restore sinus rhythm from atrial flutter with rapid ventricular response. Systemic anticoagulation with Eliquis 5 mg twice daily, discontinue aspirin. Recommend continuation, however, patient intends to resume 30 days after cardioversion so would resume aspirin 325 mg at that point. Defer further management to Dr. Alfonso as an outpatient. Discussed importance of compliance with q.12 hours Eliquis 5 mg without interruption for the next 30 days post cardioversion to reduce embolic stroke risk. Patient verbalized understanding and agreed. Procedure to be performed/Plan: Transesophageal echocardiogram guided elective electrical cardioversion Allergies Allergy/AdvReac Type Severity Reaction Status Date / Time Penicillins Allergy Unknown Unknown Verified 01/08/21 11:00 Home Medications Medication Instructions Recorded Confirmed Type metoprolol tartrate 100 mg PO BID 05/02/19 01/08/21 History sotalol 80 mg PO DAILY 05/02/19 01/08/21 History Adults Multivitamin 1 tablet PO DAILY 06/26/20 01/08/21 History Yelp 1 cap PO DAILY 06/26/20 01/08/21 History aspirin 325 mg PO DAILY 06/26/20 01/07/21 History omega-3 fatty acids-vitamin E 1,000 cap PO DAILY 06/26/20 01/08/21 History sotalol 120 mg PO HS 06/26/20 01/08/21 History apixaban [Eliquis] 5 mg PO DAILY 01/07/21 01/08/21 History Current Medications: Active Medications Sodium Chloride (Normal Saline Iv) 500 mls @ 30 mls/hr IV CONT .[id number] SCOTT Sedation/Anesthesia: No previous sedation/anesthesia problems (including family history). PMFSH Past Medical History Medical History Anxiety Arthritis Atrial fibrillation Bronchitis Diastolic dysfunction Echocardiogram March 2016: Grade 2 diastolic dysfunction EF 75-80%, mild to moderate mitral valve regurgitation with possible underestimation of degree of regurgitation given jet Diverticulitis Diverticulosis Gout History of cardioversion Hypertension Hypertrophic cardiomyopathy Rectal polyp UTI (urinary tract infection) Surgical History Surgical History H/O cardiac catheterization History of cardiac radiofrequency ablation History of colonoscopy with polypectomy (~2016) History of radiofrequency ablation (RFA) procedure for cardiac arrhythmia S/P medial meniscectomy of left knee (~11/2016) Status post laparoscopic-assisted sigmoidectomy (~2013) Family History Family History Other Carcinoma of colon Family history of heart disease in male family member before age 55 Family history of malignant neoplasm Social History Social History Social History: The patient is . He drinks at least 3-4 beers a day. He is a lifelong nonsmoker and denies drug use. Smoking status: Never smoker Alcohol intake: current Drinks per week: 21 Alcohol use details: Drinks approximately 3 beers/day Substance use: never Substance use type
--- NOTE | 2021-01-08 13:06 | WPDTECDV ---
FARAZ with Cardioversion Date of procedure: 01/08/21 Procedure Type: Transesophageal echocardiogram guided elective electrical cardioversion Diagnosis: Atrial flutter with rapid ventricular response Indications: Atrial flutter with rapid ventricular response Description of Procedure: Brief history present illness: Patient is a pleasant 65-year-old male with a history of HCM and paroxysmal atrial fibrillation and atrial flutter status post AFib ablation x2 now with recurrent symptomatic atrial flutter with rapid ventricular response referred for transesophageal echocardiogram guided elective electrical cardioversion in attempt to restore sinus rhythm. Procedure in detail: After verbal and written informed consent was obtained the patient risks, benefits, and alternatives explained in detail the patient agreed to proceed with the plan of care as outlined above. Patient was evaluated at bedside in the [facility] procedure room. On examination, neck was supple with normal range of motion, no restrictions to opening of the oral cavity, jaw angle and posterior hypopharynx was clear. Lungs were clear to auscultation. Patient was placed in appropriate 30 to 45 degree angle in a supine, slight left lateral decubitus position. Patient was monitored throughout the study with telemetry, oxygen saturation, end-tidal CO2 monitoring, blood pressure, heart rate, and respirations. Anterior and posterior defibrillator pads placed in the appropriate positions. The posterior hypopharynx was then locally anesthetized using repeated administration of Hurricaine spray as well as gargled viscous lidocaine. After local anesthetic of the posterior hypopharynx was achieved and the oral bite block placed, moderate sedation was administered. Through the oral bite block, the transesophageal echocardiogram probe was advanced into the posterior hypopharynx and into the esophagus easily and without complication. Multiple, multiplanar echocardiographic images were obtained in multiple standard re-projections. Pulsed wave, continuous-wave, and color-flow Doppler were utilized in conjunction with this study. At the conclusion of the study, the transesophageal echocardiogram probe was removed easily and without complication. Patient tolerated the procedure well without difficulty. Patient was in atrial flutter with rapid ventricular response throughout the study. Sedation: Moderate Sedation/Anesthesia administration: Patient denied previous intolerance or complications with anesthesia/sedation. Please see sedation note for documentation of the pre-procedure physical examination. As noted above, after adequate local anesthesia of the posterior hypopharynx was achieved, a total of 7mg intravenous Versed and a total of 175 mcg intravenous Fentanyl in multiple divided doses was utilized for moderate sedation. Sedation start time was 1201 and end time was 1240 for a total of 39 minutes [id number] intra-procedure time. Sedation was administered by a qualified observer Adela Murray RN under my supervision with intra-procedure [id number] observation and management throughout the entirety of the procedure. There were no other issues or complications and patient tolerated the procedure well and sedation protocol well and I was present for the entirety. Findings: FINDINGS: LEFT VENTRICLE: Size and systolic function were within normal limits with severe concentric left ventricle hypertrophy without wall motion abnormalities with ejection fraction of 70-75%. RIGHT VENTRICLE: Size and systolic function within normal limits. LEFT ATRIUM: Mild to moderate enlargement RIGHT ATRIUM: Normal size. INTERATRIAL SEPTUM: Interatrial septum is anatomically normal without evidence of shunt with color-flow Doppler nor with injection of agitated saline. MITRAL VALVE: Mitral valve is thickened otherwise anatomically normal with preserved leaflet excursion and mild to moderate regurgitation. AORTI
--- NOTE | 2021-01-08 13:22 | SUR.PHASEII ---
discussed pt's bp with md, will keep iv ns fluids open to finish 500ml input.
--- NOTE | 2021-01-08 14:02 | SUR.PHASEII ---
Addendum entered by Khloe Bonilla RN 01/08/21 14:04: blood pressure wnl at d/c Original Note: d/c instructions given to pt and . all questions and concerns address. iv d/c tip intact. pt instructed to call dr office to set up f/u appointment. patient taken via wc to vehicle.
== END 2021-01-08 14:15 | disposition home or self-care (01) ==
PROVIDERS: PCP Internal Medicine; Visit Provider Internal Medicine Cardiovascular Disease
PROC: (CPT 93312; principal; 2021-01-08 11:30)
PROC: 5A2204Z Restoration of Cardiac Rhythm, Single (ICD-10-PCS; 2021-01-08 11:30)
DX: I48.20 Chronic atrial fibrillation, unspecified (principal); I42.8 Other cardiomyopathies; I34.0 Nonrheumatic mitral (valve) insufficiency; I42.9 Cardiomyopathy, unspecified; Z79.82 Long term (current) use of aspirin; Z79.01 Long term (current) use of anticoagulants; M19.90 Unspecified osteoarthritis, unspecified site; K57.30 Diverticulosis of large intestine without perforation or abscess without bleeding; K57.32 Diverticulitis of large intestine without perforation or abscess without bleeding; M10.9 Gout, unspecified; I10 Essential (primary) hypertension
CPT/HCPCS: 36415; 80048; 83735; 85027; 92960; 93312; 93320; 93325; J2250; J3010; J7040

== ENCOUNTER 2021-01-16 07:02 | Emergency (ER) | payer BC, SELFPAY ==
--- NOTE | ~2021-01-16 | XR_ITS ---
EXAMINATION: XR foot RT 2V INDICATION: Right foot swelling TECHNIQUE: Two views of the right foot are obtained. COMPARISON: None available FINDINGS: There is no fracture, dislocation, or subluxation. Hallux valgus is noted. There is moderat e osteoarthritis at the first metatarsophalangeal joint. A plantar enthesophyte is noted. There is di ffuse soft tissue swelling of the foot. IMPRESSION: 1. Soft tissue swelling of the foot without acute osseous abnormality. Reviewed, dictated and finalized at location B. BER [facility]
--- NOTE | ~2021-01-16 | US_ITS ---
EXAMINATION: US venous doppler LE RT DATE: 01/16/2021 08:11 INDICATION: Right lower limb swelling TECHNIQUE: Benson scale images without and with compression and Doppler images of the right lower extre mity veins were obtained. COMPARISON: None FINDINGS: The right common femoral vein, profunda femoral vein, femoral vein, popliteal vein, peronea l trunk, posterior tibial veins, and greater saphenous vein are patent. IMPRESSION: 1. Patent right lower extremity veins. No evidence of deep venous thrombosis. Reviewed, dictated and finalized at location B. SPLICER
[2021-01-16 07:23] VITALS: BP 153/95; PULSE 70; RESP 16; TEMP 36.6; O2SAT 100
[2021-01-16] MEDS: KETOROLAC 15 MG/ML VIAL (*BKC) IV PUSH (08:29)
[2021-01-16 08:31] LABS: Basophils Percent Auto 0.3 % (0.2-1.2); Eosinophils Absolute Auto 0.1 K/mm3 (0-0.3); Hemoglobin 15.4 g/dL (14.0-18.0); Immature Granulocyte Absolute 0.12 K/mm3 (0.00-0.031); Immature Granulocyte Percent A 0.9 % (0-0.5); Lymphocytes Percent Auto 12.6 % (18.3-44.2); Mean Corpuscular Hemoglobin 33.7 pg (26-34); Mean Corpuscular Volume 96.3 fl (80-100); Mean Platelet Volume 8.9 fl (7.4-10.4); Monocytes Absolute Auto 1.1 K/mm3 (0.1-0.6); Monocytes Percent Auto 8.5 % (2.6-8.5); Neutrophils Absolute Auto 9.7 K/mm3 (1.3-6.7); Neutrophils Percent Auto 76.7 % (45.5-73.1); Platelet Count Result 211 k/mm3 (150-375); Red Blood Count 4.57 M/mm3 (4.6-6.20); Red Cell Distribution Width 12.8 % (11.5-14.5); White Blood Count 12.7 K/mm3 (4.5-10.0)
[2021-01-16 08:42] LABS: Alanine Aminotransferase 25 U/L (4-50); Albumin Level 4.5 g/dL (3.5-5.1); Alkaline Phosphatase 60 U/L (38-126); Anion Gap 10 mmol/L (8-16); Aspartate Amino Transferase 26 U/L (17-59); Blood Urea Nitrogen 12 mg/dL (9-20); Calcium 9.2 mg/dL (8.4-10.2); Carbon Dioxide 25 mmol/L (22-30); Chloride 101 mmol/L (98-107); Creatine Kinase 34 U/L (55-170); Estimated CRCL calculation 103 ml/min; Estimated Glomerular Filt Rate > 60; Glucose 130 mg/dL (65-110); Potassium 4.1 mmol/L (3.4-5.0); Sodium 136 mmol/L (137-145)
--- NOTE | 2021-01-16 09:18 | ED.EXTPRO ---
HPI - Extremity Problem General Chief complaint: Extremity Problem,Nontraumatic Stated complaint: tendonitis in right foot Time Seen by Provider: 01/16/21 07:25 Source: patient History of Present Illness HPI Narrative: Patient presents with right foot pain. Patient ports he had pain for approximately 1 week his pain is getting worse it is achy, constant, worse with walking around, now radiate up his leg. He also reports associated edema. Denies any trauma to the area. Denies any prior history of DVTs is reported history of gout but reports his joints are not particularly painful he is thinking his symptoms are more related to tendinitis. Related Data Home Medications Medication Instructions Recorded Confirmed metoprolol tartrate 100 mg PO BID 05/02/19 01/08/21 sotalol 80 mg PO DAILY 05/02/19 01/08/21 Adults Multivitamin 1 tablet PO DAILY 06/26/20 01/08/21 Recognition PRO 1 cap PO DAILY 06/26/20 01/08/21 aspirin 325 mg PO DAILY 06/26/20 01/07/21 omega-3 fatty acids-vitamin E 1,000 cap PO DAILY 06/26/20 01/08/21 sotalol 120 mg PO HS 06/26/20 01/08/21 Allergies Allergy/AdvReac Type Severity Reaction Status Date / Time Penicillins Allergy Unknown Unknown Verified 01/16/21 07:27 Review of Systems Review of Systems: CONSTITUTIONAL: Denies fever, chills, or sweats. EYES: Denies visual changes, redness, or discharge. ENT: Denies rhinorrhea, congestion, sore throat, or otalgia. CARDIOVASCULAR: Denies chest pain, palpitations, or edema. RESPIRATORY: Denies cough or dyspnea. GASTROINTESTINAL: Denies abdominal pain, nausea, vomiting, or diarrhea. GENITOURINARY: Denies dysuria or hematuria. SKIN: Denies rash or itching. MUSCULOSKELETAL: Denies back pain, joint pain, or myalgia. NEUROLOGIC: Denies headache, numbness, dizziness, or weakness. PSYCHIATRIC: Denies anxiety or depression. All systems reviewed & are unremarkable except as noted in HPI and below PMFSH Past Medical History Medical History Anxiety Arthritis Atrial fibrillation Bronchitis Diastolic dysfunction Echocardiogram March 2016: Grade 2 diastolic dysfunction EF 75-80%, mild to moderate mitral valve regurgitation with possible underestimation of degree of regurgitation given jet Diverticulitis Diverticulosis Gout History of cardioversion Hypertension Hypertrophic cardiomyopathy Rectal polyp UTI (urinary tract infection) Surgical History Surgical History H/O cardiac catheterization History of cardiac radiofrequency ablation History of colonoscopy with polypectomy (~2016) History of radiofrequency ablation (RFA) procedure for cardiac arrhythmia S/P medial meniscectomy of left knee (~11/2016) Status post laparoscopic-assisted sigmoidectomy (~2013) Family History Family History Other Carcinoma of colon Family history of heart disease in male family member before age 55 Family history of malignant neoplasm Social History Social History Social History: The patient is . He drinks at least 3-4 beers a day. He is a lifelong nonsmoker and denies drug use. Smoking status: Never smoker Alcohol intake: current Drinks per week: 21 Alcohol use details: Drinks approximately 3 beers/day Substance use: never Substance use type: does not use Gender identity (if verbalized by the patient): Male Sexual Orientation (if Verbalized by the Patient): Straight or Heterosexual Spiritual care concerns: No Exam Narrative: GENERAL: Well-appearing, well-nourished, and in no acute distress. HEAD: Normocephalic, atraumatic. EYES: PERRLA and EOMI. ENT: Nares clear, no rhinorrhea or epistaxis. Mucous membranes moist. NECK: Supple. No masses. No JVD CHEST: Clear to auscultation. No respiratory distress. No wheezes rales or
[2021-01-16 09:33] VITALS: BP 138/83; PULSE 66; RESP 16; O2SAT 98
== END 2021-01-16 09:34 | disposition home or self-care (01) ==
PROVIDERS: Emergency Provider Emergency Medicine; PCP Internal Medicine
DX: L03.115 Cellulitis of right lower limb (principal); F41.9 Anxiety disorder, unspecified; M19.90 Unspecified osteoarthritis, unspecified site; I48.91 Unspecified atrial fibrillation; K57.90 Diverticulosis of intestine, part unspecified, without perforation or abscess without bleeding; I10 Essential (primary) hypertension
CPT/HCPCS: 36415; 73620; 80053; 82550; 85025; 93971; 96374; 99284; J1885

== ENCOUNTER 2021-10-08 00:05 | Day surgery (SDC) | payer OTHER, SELFPAY ==
[2021-10-07 13:15] VITALS: BMI 31.9
[2021-10-08] VITALS (8 sets, daily range): BP systolic 99–120; BP diastolic 75–103; PULSE 68–131; RESP 14–19; TEMP 36.2; O2SAT 94–100; BMI 25.1
--- NOTE | 2021-10-08 07:11 | ECG_ITS ---
Measurements Intervals [place] Rate: 72 P: 93 SC: 193 QRS: 29 QRSD: 92 T: 39 QT: 415 QTc: 457 Interpretive Statements SINUS RHYTHM WITH OCCASIONAL SUPRAVENTRICULAR PREMATURE COMPLEXES COMPARED TO ECG 10/08/2021 07:24:16 SINUS RHYTHM NOW PRESENT Electronically Signed On 10-08-2021 11:41:59 CDT by Jaime Hills M.D.
--- NOTE | 2021-10-08 07:11 | ECG_ITS ---
Measurements Intervals [place] Rate: 106 P: MT: 0 QRS: 24 QRSD: 88 T: 48 QT: 323 QTc: 430 Interpretive Statements ATRIAL FLUTTER/TACHYCARDIA WITH RAPID VENTRICULAR RESPONSE WITH ABERRANT CONDUCTION OR VENTRICULAR PREMATURE COMPLEXES COMPARED TO ECG 01/08/2021 12:43:57 ATRIAL FLUTTER NOW PRESENT ABERRANT CONDUCTION OF SUPRAVENTRICULAR BEAT(S) NOW PRESENT Electronically Signed On 10-08-2021 11:41:14 CDT by Jaime Hills M.D.
[2021-10-08 08:36] LABS: Hematocrit 50.6 % (42.0-52.0); Hemoglobin 16.9 g/dL (14.0-18.0); Mean Corpuscular HGB Conc 33.4 g/dl (32-36); Mean Corpuscular Hemoglobin 32.2 pg (26-34); Mean Corpuscular Volume 96.4 fl (80-100); Mean Platelet Volume 9.5 fl (7.4-10.4); Platelet Count Result 215 k/mm3 (150-375); Red Blood Count 5.25 M/mm3 (4.6-6.20); Red Cell Distribution Width 12.2 % (11.5-14.5); White Blood Count 8.7 K/mm3 (4.5-10.0)
[2021-10-08 08:49] LABS: Anion Gap 13 mmol/L (8-16); Blood Urea Nitrogen 17 mg/dL (9-20); Carbon Dioxide 24 mmol/L (22-30); Chloride 102 mmol/L (98-107); Estimated CRCL calculation 113 ml/min; Estimated Glomerular Filt Rate > 60; Glucose 118 mg/dL (65-110); Magnesium 2.1 mg/dL (1.6-2.3); Potassium 4.2 mmol/L (3.4-5.0); Sodium 139 mmol/L (137-145)
--- NOTE | 2021-10-08 08:53 | PM.IMHP ---
H&P: HPI History of Present Illness Date/Time: 10/08/21 08:53 Chief Complaint: Palpitations Narrative: 66-year-old male with atrial flutter/fibrillation, history of multiple cardioversions and radiofrequency ablation; hypertrophic cardiomyopathy. Patient was referred by Dr. Alfonso for cardioversion in the setting of recurrent symptomatic atrial flutter. Patient was recently started on anticoagulation with apixaban, therefore, this cardioversion was performed with FARAZ guidance. Patient has been on sotalol. Preprocedure EKG showed atrial flutter, QTC within normal limits. [facility] Past Medical History Medical History Anxiety Arthritis Atrial fibrillation Bronchitis Diastolic dysfunction Echocardiogram March 2016: Grade 2 diastolic dysfunction EF 75-80%, mild to moderate mitral valve regurgitation with possible underestimation of degree of regurgitation given jet Diverticulitis Diverticulosis Gout History of cardioversion Hypertension Hypertrophic cardiomyopathy Rectal polyp UTI (urinary tract infection) Surgical History Surgical History H/O cardiac catheterization History of cardiac radiofrequency ablation History of colonoscopy with polypectomy (~2016) History of radiofrequency ablation (RFA) procedure for cardiac arrhythmia S/P medial meniscectomy of left knee (~11/2016) Status post laparoscopic-assisted sigmoidectomy (~2013) Family History Family History Other Carcinoma of colon Family history of heart disease in male family member before age 55 Family history of malignant neoplasm Social History Social History Social History: The patient is . He drinks at least 3-4 beers a day. He is a lifelong nonsmoker and denies drug use. Smoking status: Never smoker Smokeless tobacco user: chewing tobacco Alcohol intake: current Drinks per week: 21 Alcohol use details: 3-4 beers per day Substance use: never Substance use type: does not use Living arrangements: with family Gender identity (if verbalized by the patient): Male Sexual Orientation (if Verbalized by the Patient): Straight or Heterosexual Spiritual care concerns: No Meds Home Medications and Allergies Home Medications Medication Instructions Recorded Confirmed Type metoprolol tartrate 50 mg tablet 75 mg PO BID 05/02/19 10/07/21 History sotalol 80 mg tablet 80 mg PO DAILY 05/02/19 10/07/21 History Lactobacills gasseri-Bifidobac 1 cap PO DAILY 06/26/20 10/07/21 History bifidum,longum 1.5 billion cell capsule ([employer]) aspirin 325 mg tablet 325 mg PO DAILY 06/26/20 10/07/21 History multivit with minerals-iron 18 1 tablet PO DAILY 06/26/20 10/07/21 History mg-folic ac 400 mcg-vit K 25 mcg tablet (Adults Multivitamin) omega-3 fatty acids-vitamin E 1,000 cap PO DAILY 06/26/20 10/07/21 History 1,000 mg capsule sotalol 80 mg tablet 120 mg PO HS 06/26/20 10/07/21 History apixaban 5 mg tablet (Eliquis) 5 mg PO Q12H #60 tabs 01/08/21 10/07/21 Rx Allergies Allergy/AdvReac Type Severity Reaction Status Date / Time Penicillins Allergy Unknown Unknown Verified 01/16/21 07:27 rivaroxaban Allergy Unknown Verified 10/07/21 12:56 Vital Signs Vital Signs - 24 hr 10/08/21 07:43 10/08/21 08:30 10/08/21 08:35 Temperature 36.2 C L Pulse Rate 121 H 112 H Respiratory Rate 15 14 19 Blood Pressure 102/85 116/103 H Pulse Oximetry 96 100 100 Oxygen Delivery Room Air Nasal Cannula Nasal Cannula Oxygen Flow Rate 2 2 Exam Narrative: PHYSICAL EXAMINATION: GENERAL: Alert, oriented, no acute distress MENTAL STATUS: affect appropriate to mood EYES: Extraocular movements intact, no pallor EARS: External ears appear normal, hearing grossly normal NOSE: Normal and patent,
--- NOTE | 2021-10-08 08:57 | WPDTECDV ---
FARAZ with Cardioversion Date of procedure: 10/08/21 Description of Procedure: FARAZ GUIDED DC CARDIOVERSION REPORT DATE OF PROCEDURE: 10/08/2021 INDICATION FOR PROCEDURE: Recurrent symptomatic atrial flutter/fibrillation BRIEF CLINICAL HISTORY: 66-year-old male with atrial flutter/fibrillation, history of multiple cardioversions and radiofrequency ablation; hypertrophic cardiomyopathy.? Patient was referred by Dr. Alfonso for cardioversion in the setting of recurrent symptomatic atrial flutter.? Patient was recently started on anticoagulation with apixaban, therefore, this cardioversion was performed with FARAZ guidance.? Patient has been on sotalol.? Preprocedure EKG showed atrial flutter, QTC within normal limits. Benefits, risks and alternatives of the procedure discussed with the patient and informed consent was taken prior to the procedure. PROCEDURES PERFORMED: 1. Multiplane transesophageal echocardiography with color flow and Doppler assessment 2. Successful synchronized DC cardioversion with yazidi of sinus rhythm 3. Moderate sedation- CPT code 15602 SEDATION: Propofol 110 milligram IV in divided doses; start time 0834 , stop time 0848 , total dlux-ur-upnc time 14 minutes; Concetta Jackson RN was trained observer for moderate sedation. PROCEDURE: After obtaining informed consent, patient was brought to the [facility]. Patient was given lidocaine gel, followed by 2 sprays of benzocaine spray. Bite block was placed. Transcutaneous pads were placed in the right parasternal and left paravertebral positions. Patient was positioned in the left lateral position. After adequate sedation with propofol, transesophageal scope was advanced and multiplanar transesophageal echocardiography was performed with and without color flow and Doppler assessment. Patient's vitals were monitored throughout the procedure. Patient tolerated procedure well. There were no immediate procedure related complications. DC CARDIOVERSION REPORT: After left atrial appendage thrombus was ruled out, synchronized DC cardioversion was performed at 200 joules with yazidi of sinus rhythm. There were no immediate procedure related complications. FINDINGS: LEFT VENTRICLE: Small cavity size, asymmetrical septal hypertrophy consistent with known diagnosis of HCM, preserved LV systolic function, ejection fraction about 70%. RIGHT VENTRICLE: Normal size and systolic function. LEFT ATRIUM: Severe left atrial enlargement with spontaneous echo contrast. No evidence of left atrial appendage thrombus. RIGHT ATRIUM: Normal size. ATRIAL SEPTUM: Atrial septum is deviated towards the right consistent with elevated left atrial pressures. No evidence of shunt on color Doppler. MITRAL VALVE: Mildly thickened, mild MR. AORTIC VALVE: Normal structure, trileaflet, no stenosis. TRICUSPID VALVE: Normal structure, trivial TR, unable to assess RVSP. PULMONIC VALVE: Normal structure PERICARDIUM: Normal, no significant pericardial effusion AORTA: Normal root size RHYTHM: Atrial flutter pre cardioversion, sinus rhythm post DC cardioversion CONCLUSIONS: 1. Asymmetrical septal hypertrophy consistent with HCM, small LV cavity size, normal LV systolic function, ejection fraction about 70%. 2. Severe left atrial enlargement, deviation of atrial septum to right consistent with elevated left atrial pressures. 3. Spontaneous echo contrast in large left atrium; no evidence of left atrial appendage thrombus. 4. Mildly thickened mitral valve leaflets, mild MR. 5. Normal aortic valve structure, no stenosis or regurgitation. 6. Unable to assess RVSP due to inadequate TR jet. 7. Successful synchronized DC cardioversion with yazidi of sinus rhythm. PLAN/RECOMMENDATIONS: Continue anticoagulation with apixaban. Patient may continue other medications including sotalol. Current QTc is within normal limits. Follow-up with Dr. Alfonso. May consider electrophysiology evaluation as an ou
== END 2021-10-08 10:11 | disposition home or self-care (01) ==
PROVIDERS: PCP Internal Medicine; Visit Provider Internal Medicine Cardiovascular Disease
PROC: (CPT 93312; principal; 2021-10-08 08:30)
PROC: 5A2204Z Restoration of Cardiac Rhythm, Single (ICD-10-PCS; 2021-10-08 08:30)
DX: I48.20 Chronic atrial fibrillation, unspecified (principal); I47.2 Ventricular tachycardia; I49.3 Ventricular premature depolarization; F41.9 Anxiety disorder, unspecified; M19.90 Unspecified osteoarthritis, unspecified site; M10.9 Gout, unspecified; I11.9 Hypertensive heart disease without heart failure; I42.2 Other hypertrophic cardiomyopathy; Z79.01 Long term (current) use of anticoagulants; Z79.82 Long term (current) use of aspirin
CPT/HCPCS: 36415; 80048; 83735; 85027; 92960; 93312; 93320; 93325; J2250; J2704; J3010; J7040

== ENCOUNTER 2022-09-01 00:44 | Day surgery (SDC) | payer OTHER, SELFPAY ==
[2022-08-29 10:52] VITALS: BMI 31.0
[2022-09-01] VITALS (10 sets, daily range): BP systolic 100–138; BP diastolic 73–105; PULSE 94–132; RESP 12–26; TEMP 37.2; O2SAT 94–100; BMI 32.3
--- NOTE | 2022-09-01 07:00 | ECG_ITS ---
Measurements Intervals [place] Rate: 129 P: DE: 0 QRS: 17 QRSD: 96 T: 29 QT: 308 QTc: 453 Interpretive Statements ATRIAL FLUTTER/TACHYCARDIA WITH RAPID VENTRICULAR RESPONSE ABNORMAL RHYTHM ECG COMPARED TO ECG 10/08/2021 08:47:28 ATRIAL FLUTTER NOW PRESENT Electronically Signed On 09-01-2022 10:40:55 CDT by Diaz Riley M.D.
[2022-09-01 07:47] LABS: Anion Gap 8 mmol/L (8-16); Blood Urea Nitrogen 13 mg/dL (9-20); Calcium 9.1 mg/dL (8.4-10.2); Carbon Dioxide 25 mmol/L (22-30); Chloride 105 mmol/L (98-107); Estimated CRCL calculation 106 ml/min; Estimated Glomerular Filt Rate > 60; Glucose 106 mg/dL (65-110); Magnesium 2.1 mg/dL (1.6-2.3); Potassium 4.3 mmol/L (3.4-5.0); Sodium 138 mmol/L (137-145)
--- NOTE | 2022-09-01 08:41 | PM.IMHP ---
H&P: HPI History of Present Illness Date/Time: 09/01/22 08:41 Chief Complaint: Atrial fibrillation Narrative: 66-year-old with [place] and atrial fibrillation. History of ablation. Came to hospital for outpatient elective cardioversion because of symptomatic AFib Review of Systems Review of Systems: All systems reviewed & are unremarkable except as noted in HPI and below Constitutional: Constitutional: Denies body ache(s) Eyes: Eyes: Denies blurry vision Cardiovascular: Cardiovascular: Denies chest pain and Reports palpitations Gastrointestinal: Gastrointestinal: Denies abdominal pain [facility] Past Medical History Medical History (Updated 09/01/22 @ 08:43 by Diaz Riley MD) Anxiety Arthritis Atrial fibrillation Bronchitis Diastolic dysfunction Echocardiogram March 2016: Grade 2 diastolic dysfunction EF 75-80%, mild to moderate mitral valve regurgitation with possible underestimation of degree of regurgitation given jet Diverticulitis Diverticulosis Gout History of cardioversion Hypertension Hypertrophic cardiomyopathy Rectal polyp UTI (urinary tract infection) Surgical History Surgical History H/O cardiac catheterization History of cardiac radiofrequency ablation History of colonoscopy with polypectomy (~2016) History of radiofrequency ablation (RFA) procedure for cardiac arrhythmia S/P medial meniscectomy of left knee (~11/2016) Status post laparoscopic-assisted sigmoidectomy (~2013) Family History Family History Other Carcinoma of colon Family history of heart disease in male family member before age 55 Family history of malignant neoplasm Social History Social History Social History: The patient is . He drinks at least 3-4 beers a day. He is a lifelong nonsmoker and denies drug use. Smoking status: Never smoker Tobacco type: smokeless tobacco Smokeless tobacco user: chewing tobacco Second hand tobacco smoke exposure: No Alcohol intake: current Drinks per week: 14 Alcohol use details: 3-4 beers per day Substance use: never Substance use type: does not use Living arrangements: with family Gender identity (if verbalized by the patient): Male Sexual Orientation (if Verbalized by the Patient): Straight or Heterosexual Spiritual care concerns: No Meds Home Medications and Allergies Home Medications Medication Instructions Recorded Confirmed Type metoprolol tartrate 50 mg tablet 75 mg PO BID 02/24/20 06/26/23 History sotalol 80 mg tablet 80 mg PO DAILY 05/02/19 09/01/22 History Lactobacills gasseri-Bifidobac 1 cap PO DAILY 06/26/20 09/01/22 History bifidum,longum 1.5 billion cell capsule ([employer]) multivit with minerals-iron 18 1 tablet PO DAILY 06/26/20 08/29/22 History mg-folic ac 400 mcg-vit K 25 mcg tablet (Adults Multivitamin) omega-3 fatty acids-vitamin E 1,000 cap PO DAILY 06/26/20 09/01/22 History 1,000 mg capsule sotalol 80 mg tablet 120 mg PO HS 06/26/20 09/01/22 History apixaban 5 mg tablet (Eliquis) 5 mg PO Q12H #60 tabs 01/08/21 09/01/22 Rx Allergies Allergy/AdvReac Type Severity Reaction Status Date / Time Penicillins Allergy Unknown Unknown Verified 08/29/22 10:51 rivaroxaban Allergy Unknown Verified 08/29/22 10:51 Vital Signs Vital Signs - 24 hr 09/01/22 07:00 Temperature 37.2 C Pulse Rate 132 H Respiratory Rate 12 Blood Pressure 110/92 H Pulse Oximetry 96 Oxygen Delivery Room Air Exam Narrative: awake alert oriented. No acute distress Const: General: comfortable and no acute distress HENMT: Face/Nose/Sinus: Normal nares present Eyes: Sclera: sclerae normal Neck: Neck: supple Resp: Effort & Inspection: normal respiratory effort Cardio: Rate: tachycardic Rhythm: abnormal rhythm irregularly
--- NOTE | 2022-09-01 08:44 | WPDMODSED ---
Moderate Sedation Note-Pt Data Patient Data Diagnosis: atrial flutter/fibrillation Present Complaint: atrial flutter/fibrillation Procedure to be performed/Plan: multiplanar transesophageal echocardiogram with color-flow pulse-wave Doppler Agitated saline Moderate sedation Electrical cardioversion Allergies Allergy/AdvReac Type Severity Reaction Status Date / Time Penicillins Allergy Unknown Unknown Verified 08/29/22 10:51 rivaroxaban Allergy Unknown Verified 08/29/22 10:51 Home Medications Medication Instructions Recorded Confirmed Type metoprolol tartrate 50 mg tablet 75 mg PO BID 05/02/19 09/01/22 History sotalol 80 mg tablet 80 mg PO DAILY 05/02/19 09/01/22 History Lactobacills gasseri-Bifidobac 1 cap PO DAILY 06/26/20 09/01/22 History bifidum,longum 1.5 billion cell capsule ([employer]) multivit with minerals-iron 18 1 tablet PO DAILY 06/26/20 08/29/22 History mg-folic ac 400 mcg-vit K 25 mcg tablet (Adults Multivitamin) omega-3 fatty acids-vitamin E 1,000 cap PO DAILY 06/26/20 09/01/22 History 1,000 mg capsule sotalol 80 mg tablet 120 mg PO HS 06/26/20 09/01/22 History apixaban 5 mg tablet (Eliquis) 5 mg PO Q12H #60 tabs 01/08/21 09/01/22 Rx Current Medications: Active Medications Sodium Chloride (Normal Saline Iv) 1,000 mls @ 30 mls/hr IV CONT .Q24H [place]OTT Sedation/Anesthesia: No previous sedation/anesthesia problems (including family history). [facility] Past Medical History Medical History Anxiety Arthritis Atrial fibrillation Bronchitis Diastolic dysfunction Echocardiogram March 2016: Grade 2 diastolic dysfunction EF 75-80%, mild to moderate mitral valve regurgitation with possible underestimation of degree of regurgitation given jet Diverticulitis Diverticulosis Gout History of cardioversion Hypertension Hypertrophic cardiomyopathy Rectal polyp UTI (urinary tract infection) Surgical History Surgical History H/O cardiac catheterization History of cardiac radiofrequency ablation History of colonoscopy with polypectomy (~2016) History of radiofrequency ablation (RFA) procedure for cardiac arrhythmia S/P medial meniscectomy of left knee (~11/2016) Status post laparoscopic-assisted sigmoidectomy (~2013) Family History Family History Other Carcinoma of colon Family history of heart disease in male family member before age 55 Family history of malignant neoplasm Social History Social History Social History: The patient is . He drinks at least 3-4 beers a day. He is a lifelong nonsmoker and denies drug use. Smoking status: Never smoker Tobacco type: smokeless tobacco Smokeless tobacco user: chewing tobacco Second hand tobacco smoke exposure: No Alcohol intake: current Drinks per week: 14 Alcohol use details: 3-4 beers per day Substance use: never Substance use type: does not use Living arrangements: with family Gender identity (if verbalized by the patient): Male Sexual Orientation (if Verbalized by the Patient): Straight or Heterosexual Spiritual care concerns: No Mod Sed Physical Exam Physical Exam Pre Procedural Exam: Normal: Appearance, Eyes, Ears, Nose, Neck, Airway, Lungs, Heart Size, Neuro Exam, Extremities and Skin and Variation: Heart Rate ( tachycardic) Hours since solid foods: 12 Hours since liquid intake: 12 Mallampati Classification: class II Internal Medicine - PN: Obj Da Vital Signs Vital Signs: Vital Signs - 24 hr 09/01/22 07:00 Temperature 37.2 C Pulse Rate 132 H Respiratory Rate 12 Blood Pressure 110/92 H Pulse Oximetry 96 Oxygen Delivery Room Air Intake/Output Intake/Output: Intake & Output 08/29/22 08/30/22 08/31/22 09/01/22 23:59 23:59 23:59 23:59 In
--- NOTE | 2022-09-01 09:13 | P.PCNTEE_ITS ---
FARAZ TransEsophageal Echocardiogram Date of procedure: 09/01/22 Procedure Type: multiplanar transesophageal echocardiography with color flow and pulse wave Doppler Moderate sedation Diagnosis: atrial fibrillation/flutter Indications: atrial fibrillation/flutter Image Quality: good Findings: after discussing the risks, benefits alternatives of procedure patient agreeable. Verbal and written informed consent. Risks discussed included esophageal rupture perforation. Originally the patient was consented for age cardioversion also and risks discussed included shocking into more problematic heart rhythms, skin irritation or burn, adverse reaction to anesthesia, , stroke. After establishing continuous telemetry monitoring per, pulse oxygenation and serial blood pressure assessments of procedure was started. procedure start time 9:01 a.m. Procedure stop time 9:08 a.m. Blood loss: None Complications: None Medications used: 75 mcg of fentanyl and 5 mg of Versed given in divided dosages Medications were administered patient was monitored by Sayra Franco RN Findings: hyperdynamic left ventricle with ejection fraction greater than 75%. Normal right ventricular size and function. Normal right atrial size. Severe left atrial enlargement. Left atrial appendage is large. Pulse-wave velocities are 80-100 centimeters/second. There was hypermobility and possible thrombus seen in left atrial appendage. Aortic valve sclerosis. Trileaflet aortic valv e. Normal tricuspid valve with mild tricuspid regurgitation. mitral valve is seen and with mild mitral regurgitation. Atrial septum is thin hypermobile, borderline aneurysmal and bulging to the right. Color flow evidence of PFO is seen. No pericardial effusion Because of the possible thrombus in left atrial appendage, cardioversion was not performed Conclusions: 1. hyperdynamic left ventricle 2. Large left atrial appendage with possible thrombus 3. No cardioversion is performed 4. Continue anticoagulation with Eliquis. Follow-up with electrophysiology next week and consider repeat cardioversion in the future 5. Moderate sedation
== END 2022-09-01 10:14 | disposition home or self-care (01) ==
PROVIDERS: PCP Internal Medicine; Visit Provider Internal Medicine Cardiovascular Disease
PROC: (CPT 93312; principal; 2022-09-01 08:30)
DX: I48.92 Unspecified atrial flutter (principal); I48.91 Unspecified atrial fibrillation; I42.2 Other hypertrophic cardiomyopathy; R93.1 Abnormal findings on diagnostic imaging of heart and coronary circulation; I11.9 Hypertensive heart disease without heart failure; M10.9 Gout, unspecified; F41.9 Anxiety disorder, unspecified; F17.220 Nicotine dependence, chewing tobacco, uncomplicated; Z79.01 Long term (current) use of anticoagulants
CPT/HCPCS: 36415; 80048; 83735; 93312; 93320; 93325; J2250; J3010; J7030

== ENCOUNTER 2023-09-17 02:10 | Day surgery (SDC) | payer MEDICARE, SELFPAY ==
[2023-09-08 13:59] VITALS: BMI 32.8
--- NOTE | 2023-09-08 14:15 | PC.NURSE ---
Spoke with PATIENT regarding medications. Pt. verbalizes understanding that the last dose of ELIQUIS is to be taken on 09/14/2023 and the Endoscopist will instruct them when to restart after the procedure.
[2023-09-17 06:50] VITALS: BP 156/92; PULSE 79; RESP 20; TEMP 35.9; O2SAT 100; BMI 32.7
[2023-09-17] MEDS: LACTATED RINGERS 1,000 ML 150 ML IV CONT (07:01)
--- NOTE | 2023-09-17 07:51 | WPDANESEPPF ---
Anes - Initial Pre Proc Eval Procedure: Operation Date: 09/17/23 08:00 Proposed Procedures p Colonoscopy - Elijah Mederos MD Date/Time: 09/17/23 07:51 Surgeon: Elijah Mederos MD Pre Op Diagnosis: Malignant neoplasm of colon Patient Data Age: 67 Gender: M Height: 1.83 m Weight: 109.4 kg Last Vital Signs Temp 96.7 F L 09/17/23 06:50 Pulse 79 09/17/23 06:50 Resp 20 09/17/23 06:50 BP 156/92 H 09/17/23 06:50 Pulse Ox 100 09/17/23 06:50 O2 Del Method Room Air 09/17/23 06:50 Allergies Allergy/AdvReac Type Severity Reaction Status Date / Time Penicillins Allergy Unknown Unknown Verified 09/17/23 06:48 rivaroxaban AdvReac Intermediate Gastrointestinal Verified 09/17/23 06:48 Upset Home Medications Medication Instructions Recorded Confirmed Type metoprolol tartrate 50 mg tablet 50 mg PO BID 05/02/19 09/17/23 History Lactobacills gasseri-Bifidobac 1 cap PO DAILY 06/26/20 09/17/23 History bifidum,longum 1.5 billion cell capsule ([facility]) multivit with minerals-iron 18 1 tablet PO DAILY 06/26/20 09/17/23 History mg-folic ac 400 mcg-vit K 25 mcg tablet (Adults Multivitamin) omega-3 fatty acids-vitamin E 1,000 cap PO DAILY 06/26/20 09/17/23 History 1,000 mg capsule apixaban 5 mg tablet (Eliquis) 5 mg PO Q12H #60 tabs 09/01/22 09/08/23 Rx amiodarone 200 mg tablet 200 mg PO DAILY 05/18/23 09/17/23 History Patient hx anesthesia problems: none Family hx anesthesia problems: none Results Review: All pre-operative results and documents have been reviewed as part of the pre-operative evaluation. [facility] Past Medical History Medical History (Updated 05/18/23 @ 13:58 by Stephani Reed PA-C) Anxiety Arthritis Atrial fibrillation BPH (benign prostatic hyperplasia) (~2018) cystoscopy +BPH o/w negative Bronchitis Colon cancer 2014- Dr. Hutton (no longer follows) sigmoidectomy, no chemo, no radiation Diastolic dysfunction Echocardiogram March 2016: Grade 2 diastolic dysfunction EF 75-80%, mild to moderate mitral valve regurgitation with possible underestimation of degree of regurgitation given jet Diverticulitis ?? maybe one flare 2009 Diverticulosis Gout History of cardioversion Hypertension Hypertrophic cardiomyopathy Dr. Lorenz Rectal polyp UTI (urinary tract infection) Surgical History Surgical History H/O cardiac catheterization History of cardiac radiofrequency ablation History of colonoscopy with polypectomy (~2016) History of radiofrequency ablation (RFA) procedure for cardiac arrhythmia S/P medial meniscectomy of left knee (~11/2016) Status post laparoscopic-assisted sigmoidectomy (~2013) Family History Family History Other Carcinoma of colon Family history of heart disease in male family member before age 55 Family history of malignant neoplasm Social History Social History Social History: The patient is . He drinks at least 3-4 beers a day. He is a lifelong nonsmoker and denies drug use. Years smoked: 25 Smoking status: Never smoker Tobacco type: smokeless tobacco Smokeless tobacco user: chewing tobacco Second hand tobacco smoke exposure: No Alcohol intake: current Drinks per week: 12 Alcohol use details: BEERS Substance use: never Substance use type: does not use Living arrangements: with family Gender identity (if verbalized by the patient): Male Sexual Orientation (if Verbalized by the Patient): Straight or Heterosexual Spiritual care concerns: No Anes - Eval Final PreProcedure Day of Procedure 09/17/23 07:51 Patient weight: normal Heart: irregular rhythm Lungs: clear to auscultation Airway: Mallampati scale class II Neurological: alert and oriented Last oral intake: >/= 8
--- NOTE | 2023-09-17 07:57 | PM.HPGS ---
History of Present Illness History of Present Illness Consent: Risks, benefits, and alternatives have been discussed and questions answered. Patient agrees to proceed with procedure. Chief complaint: Malignant neoplasm of colon Narrative: Diallo Martinez is a 67 year old male with sigmoid colon cancer 2015 s/p surgery, did not require chemorx, last colonoscopy 5 years ago Review of Systems Review of Systems: All systems reviewed & are unremarkable except as noted in HPI and below PMFSH Past Medical History Medical History (Updated 05/18/23 @ 13:58 by Stephani Reed PA-C) Anxiety Arthritis Atrial fibrillation BPH (benign prostatic hyperplasia) (~2018) cystoscopy +BPH o/w negative Bronchitis Colon cancer 2014- Dr. Hutton (no longer follows) sigmoidectomy, no chemo, no radiation Diastolic dysfunction Echocardiogram March 2016: Grade 2 diastolic dysfunction EF 75-80%, mild to moderate mitral valve regurgitation with possible underestimation of degree of regurgitation given jet Diverticulitis ?? maybe one flare 2009 Diverticulosis Gout History of cardioversion Hypertension Hypertrophic cardiomyopathy Dr. Lorenz Rectal polyp UTI (urinary tract infection) Surgical History Surgical History H/O cardiac catheterization History of cardiac radiofrequency ablation History of colonoscopy with polypectomy (~2016) History of radiofrequency ablation (RFA) procedure for cardiac arrhythmia S/P medial meniscectomy of left knee (~11/2016) Status post laparoscopic-assisted sigmoidectomy (~2013) Family History Family History Other Carcinoma of colon Family history of heart disease in male family member before age 55 Family history of malignant neoplasm Social History Social History Social History: The patient is . He drinks at least 3-4 beers a day. He is a lifelong nonsmoker and denies drug use. Years smoked: 25 Smoking status: Never smoker Tobacco type: smokeless tobacco Smokeless tobacco user: chewing tobacco Second hand tobacco smoke exposure: No Alcohol intake: current Drinks per week: 12 Alcohol use details: BEERS Substance use: never Substance use type: does not use Living arrangements: with family Gender identity (if verbalized by the patient): Male Sexual Orientation (if Verbalized by the Patient): Straight or Heterosexual Spiritual care concerns: No Meds Home Medications and Allergies Home Medications Medication Instructions Recorded Confirmed Type metoprolol tartrate 50 mg tablet 50 mg PO BID 05/02/19 09/17/23 History Lactobacills gasseri-Bifidobac 1 cap PO DAILY 06/26/20 09/17/23 History bifidum,longum 1.5 billion cell capsule ([place]) multivit with minerals-iron 18 1 tablet PO DAILY 06/26/20 09/17/23 History mg-folic ac 400 mcg-vit K 25 mcg tablet (Adults Multivitamin) omega-3 fatty acids-vitamin E 1,000 cap PO DAILY 06/26/20 09/17/23 History 1,000 mg capsule apixaban 5 mg tablet (Eliquis) 5 mg PO Q12H #60 tabs 09/01/22 09/08/23 Rx amiodarone 200 mg tablet 200 mg PO DAILY 05/18/23 09/17/23 History Allergies Allergy/AdvReac Type Severity Reaction Status Date / Time Penicillins Allergy Unknown Unknown Verified 09/17/23 06:48 rivaroxaban AdvReac Intermediate Gastrointestinal Verified 09/17/23 06:48 Upset Vital Signs Vital Signs - 24 hr 09/17/23 06:50 Temperature 96.7 F L Pulse Rate 79 Respiratory Rate 20 Blood Pressure 156/92 H Pulse Oximetry 100 Oxygen Delivery Room Air Exam Const: General: comfortable and no acute distress HENMT: Face/Nose/Sinus: Normal nares present Eyes: General: appearance normal, both eyes and all related structures Neck: Neck: no JVD Resp: Auscultation: clear to auscultation bilaterally Cardi
[2023-09-17 08:16] VITALS: BP 110/66; PULSE 63; RESP 18; O2SAT 99
[2023-09-17 08:26] VITALS: BP 116/76; PULSE 64; RESP 16; O2SAT 99
[2023-09-17 08:36] VITALS: BP 127/87; PULSE 63; RESP 15; O2SAT 98
== END 2023-09-17 08:42 | disposition home or self-care (01) ==
PROVIDERS: PCP Physician Assistant Medical; Visit Provider Internal Medicine Gastroenterology
PROC: 0DJD8ZZ Inspection of Lower Intestinal Tract, Via Natural or Artificial Opening Endoscopic (ICD-10-PCS; CPT 45378; principal; 2023-09-17 08:00)
DX: Z08 Encounter for follow-up examination after completed treatment for malignant neoplasm (principal); D12.0 Benign neoplasm of cecum; D12.2 Benign neoplasm of ascending colon; D12.3 Benign neoplasm of transverse colon; K57.30 Diverticulosis of large intestine without perforation or abscess without bleeding; I10 Essential (primary) hypertension; I42.2 Other hypertrophic cardiomyopathy; F41.9 Anxiety disorder, unspecified; I48.91 Unspecified atrial fibrillation; N40.0 Benign prostatic hyperplasia without lower urinary tract symptoms; F17.220 Nicotine dependence, chewing tobacco, uncomplicated; Z79.01 Long term (current) use of anticoagulants; Z98.890 Other specified postprocedural states; Z90.49 Acquired absence of other specified parts of digestive tract; Z98.61 Coronary angioplasty status; Z98.0 Intestinal bypass and anastomosis status; Z86.79 Personal history of other diseases of the circulatory system; Z85.038 Personal history of other malignant neoplasm of large intestine; Z80.0 Family history of malignant neoplasm of digestive organs; Z82.49 Family history of ischemic heart disease and other diseases of the circulatory system
CPT/HCPCS: 45385; 88305; J2704; J7120